=== PATIENT | female | born 1975 | race Caucasian/White ===

== ENCOUNTER 2018-02-03 08:59 | Outpatient (CLI) | payer OTHER | END 2018-02-03 09:01 | disposition home or self-care (01) | LOC: SONOGRAMA 08:59 | DX: E03.8 Other specified hypothyroidism (principal) ==

== ENCOUNTER 2021-03-06 08:00 | Outpatient (CLI) | payer OTHER | END 2021-03-06 08:30 | disposition home or self-care (01) | LOC: PPH VACUNA 08:00 | PROVIDERS: ATTEND Emergency Medicine Pediatric Emergency Medicine | DX: Z23 Encounter for immunization (principal) ==